=== PATIENT | female | born 1995 | race African-American/Black ===

== ENCOUNTER 2018-06-23 12:46 | Emergency (ER) | payer OTHER ==
[~2018-06-23] VITALS: Ht 167.6 cm; Wt 97.1 kg
[~2018-06-23 12:46] MED LIST: HYDROCODONE-AP1 EAC6 PO; NAPROSYN500 MG PO; NOHOMEMEDICATIONS; PENICILLIN V P500 MG PO
[2018-06-23 12:48] VITALS: BP 162/108
[2018-06-23] MEDS ORDERED: PENICILLIN V P500 MG PO (13:20)
[2018-06-23] MEDS ORDERED: NORCO 7.5-3251 EACH PO (13:20)
[2018-06-23] MEDS ORDERED: MOBIC7.5 MG PO (13:20)
== END 2018-06-23 13:50 | disposition home or self-care (01) ==
LOC: ER 12:46
DX: R51 Headache (principal); K08.89 Other specified disorders of teeth and supporting structures; J45.909 Unspecified asthma, uncomplicated; Z90.89 Acquired absence of other organs